=== PATIENT | male | born 1950 | race Caucasian/White ===

== ENCOUNTER 2018-04-30 18:22 | Emergency (ER) | payer OTHER ==
[2018-04-30 18:26] VITALS: BP 144/103; PULSE 105; RESP 18; TEMP 99.9; O2SAT 97
--- NOTE | 2018-04-30 19:20 | C.PDOC ---
History Of Present Illness 67 y/o male presents to the ED complaining that he feels weak and tired. Also admits he feels depressed because his left him. Otherwise he denies other psychiatric complaints such as suicidal/homicidal ideation. No associated chest pain, palpitations, or SOB. Time Seen by Provider: 04/30/18 19:19 Chief Complaint (Nursing): Weakness/Neurological Deficit History Per: Patient History/Exam Limitations: no limitations Onset/Duration Of Symptoms: Hrs Current Symptoms Are (Timing): Still Present Past Medical History Reviewed: Historical Data, Nursing Documentation, Vital Signs Vital Signs: Last Vital Signs Temp 99.9 F H 04/30/18 18:23 Pulse 105 H 04/30/18 18:23 Resp 18 04/30/18 18:23 BP 144/103 H 04/30/18 18:23 Pulse Ox 97 04/30/18 18:23 - Medical History PMH: No Chronic Diseases Family History: States: No Known Family Hx - Social History Hx Tobacco Use: Yes Hx Alcohol Use: No Hx Substance Use: No - Immunization History Hx Tetanus Toxoid Vaccination: No Hx Influenza Vaccination: No Hx Pneumococcal Vaccination: No Review Of Systems Constitutional: Positive for: Weakness (feels generally weak and tired). Negative for: Fever, Chills Cardiovascular: Negative for: Chest Pain, Palpitations Respiratory: Negative for: Shortness of Breath Gastrointestinal: Negative for: Nausea, Vomiting Neurological: Negative for: Weakness, Numbness, Incoordination, Change in Speech, Dizziness Physical Exam - Physical Exam Appears: Non-toxic, No Acute Distress Skin: Warm, Dry Head: Normacephalic Eye(s): bilateral: Normal Inspection Oral Mucosa: Moist Neck: Trachea Midline, Supple Chest: Symmetrical Cardiovascular: Rhythm Regular Respiratory: No Rales, No Rhonchi, No Wheezing Gastrointestinal/Abdominal: Soft, No Tenderness, No Distention Extremity: Bilateral: Atraumatic, Normal ROM Pulses: Left Dorsalis Pedis: Normal, Right Dorsalis Pedis: Normal Neurological/Psych: Oriented x3, Normal Speech, Other (Depressed affect) Gait: Steady ED Course And Treatment ECG: Interpreted By Me, Viewed By Me ECG Rhythm: Nonspecific Changes O2 Sat by Pulse Oximetry: 97 (RA) Pulse Ox Interpretation: Normal - Radiology CXR: Interpreted by Me, Viewed By Me CXR Interpretation: Yes: Other (? fibrotic changes). No: Infiltrates, Fracture, Pnemothorax Progress Note: Blood work and urine sent. EKG and CXR ordered and reviewed. pt now refuses any blood work and wants to leave. Pt signed ama forms and is aware of all the risks as I've explaned at length. Encouraged to return anytime Against Medical Advice - AMA Patient Left Against Medical Advice: The patient declines admission to the hospital and wishes to leave the Emergency Department. This action is against my medical advice. This decision was made with informed refusal. The patient was told that admission to the hospital is necessary. Explanation of the reasons why were discussed. The risks of leaving were explained to the patient and include, but are not limited to, worsening of known or currently unknown conditions, permanent disability and from undiagnosed or untreated conditions. The patient has the capacity to make this informed decision and understands my explanation of the current medical problem and risks of leaving. The patient voluntarily accepts these risks and signed an AMA form documenting our conversation. The patient was given the opportunity to ask questions and reconsider. The patient was encouraged to return to the Emergency Department at any time for further care. Disposition Counseled Patient/Family Regarding: Studies Performed, Diagnosis - Disposition Referrals: Shana Berry MD [Medical Doctor] - Disposition: AGAINST MEDICAL ADVICE Disposition Time: 19:20 Condition: FAIR Forms: [facility] (Lithuanian), General Discharge Instructions - Clinical Impression Clinical Impression: Malaise - Scribe Statement The provider has reviewed the documentation as recorded by the Scribe (Cherise Oro) Provider Attestation: All medical record entries made by the Scribe were at my direction and personally dictated by me. I have reviewed the chart and agree that the record accurately reflects my personal performance of the history, physical exam, medical decision making, and the department course for this patient. I have also personally directed, reviewed, and agree with the discharge instructions and disposition.
--- NOTE | 2018-05-01 08:11 | RAD ---
Chest x-ray single frontal view HISTORY: Shortness of breath. COMPARISON: None available. FINDINGS: Mild diffuse increased interstitial lung markings. Bibasilar breast and nipple shadows. Small nodular density at the left lung base likely represents nipple shadow. Correlation with nipple marker may be helpful. Mild patchy increased markings at the left lung base. Tortuous aorta. Top normal heart size. Degenerative changes in the spine. Mild bilateral hilar prominence. Impression: Mild diffuse increased interstitial lung markings. Bibasilar breast and nipple shadows. Small nodular density at the left lung base likely represents nipple shadow. Correlation with nipple marker may be helpful. Mild patchy increased markings at the left lung base. Tortuous aorta. Top normal heart size. Degenerative changes in the spine. Mild bilateral hilar prominence.
== END 2018-04-30 19:45 | disposition left against medical advice (07) ==
LOC: C.ER 18:22
DX: R53.81 Other malaise (principal)